=== PATIENT | female | born 1985 | race American Indian/Alaskan Native ===

== ENCOUNTER 2016-12-10 23:05 | Emergency (ER) | payer SELFPAY ==
--- NOTE | 2016-12-20 23:29 | ER ---
ADMIT: 12/10/2016 RM/LOC: ER [facility] MR#: [id number] [address] [place], [place] [id number] IVONNE BALL [address] [place] [address] Emergency Room Report SEX: F AGE: 31 : 1985 DATE: 12/10/2016 HISTORY OF PRESENT ILLNESS: The patient is a 31-year-old female, who presents to the emergency room with a left lower leg cellulitis. She has had it for about 2 days, but had one of her friends squeezed the area and now she has more pain, and the area has worsened in the extent of it. REVIEW OF SYSTEMS: Negative. 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 She did have some surgery of her jaw when she was in [place], had the hardware infected. She is a smoker of half a pack, and she is allergic to penicillin. She drinks alcohol socially. PHYSICAL EXAMINATION: VITAL SIGNS: She is afebrile. Blood pressure is 150/90, and heart rate is 102. EXTREMITIES: Left leg is erythematous anteriorly, warm, tender, swelling. There is a draining area of pus and erythema. I and D took place injecting lidocaine with epi. Procedure was well tolerated. #11 blade used for the procedure and small amount of purulent drainage was obtained. The area was packed with non-medicated gauze. Cultures were obtained. I probed for loculations, and she was discharged after we dressed up the area for comfort. We did vera the area of cellulitis with a skin marker and started her on Bactrim DS 2 tablets here and a prescription to follow up for home use. Unable to give her a shot of Rocephin as she is allergic to penicillin and reacts with an anaphylactic reaction. KATELYN Can / Bandar Garcia MD / jone JOB #: [id number] CC: Bandar Garcia MD, Attending Physician Marlee Mobley MD, Family Physician
== END 2016-12-11 00:30 | disposition home or self-care (01) ==
LOC: ER 23:05
PROC: 0H9LXZZ Drainage of Left Lower Leg Skin, External Approach (ICD-10-PCS; principal; 2016-12-10)
DX: L02.416 Cutaneous abscess of left lower limb (principal); L03.116 Cellulitis of left lower limb; F17.210 Nicotine dependence, cigarettes, uncomplicated